=== PATIENT | female | born 1970 | race Caucasian/White ===

== ENCOUNTER → 2018-05-13 | Outpatient (CLI) | payer OTHER ==
--- NOTE | 2018-05-14 08:20 | RAD ---
DATE: 05/13/2018 EXAM: DIGITAL SCREEN BILAT W/CAD HISTORY: Routine screening COMPARISON: 06/19/2015 This study was interpreted with the benefit of Computerized Aided Detection (CAD). Breast Density: SCATTERED The breast parenchyma shows scattered fibroglandular densities. Breast parenchyma level B. FINDINGS: There are stable small nodules in the lateral aspect of the left breast compatible with benign intramammary lymph nodes. No new or enlarging breast densities are seen. No suspicious microcalcifications are evident. IMPRESSION: Stable mammograms without evidence of malignancy. BI-RADS CATEGORY: 2 BENIGN FINDING(S) RECOMMENDED FOLLOW-UP: 12M 12 MONTH FOLLOW-UP PQRS compliance statement: Patient information was entered into a reminder system with a target due date for the next mammogram. Mammography is a sensitive method for finding small breast cancers, but it does not detect them all and is not a substitute for careful clinical examination. A negative mammogram does not negate a clinically suspicious finding and should not result in delay in biopsying a clinically suspicious abnormality. "Our facility is accredited by the [employer] Mammography Program."
== END | disposition home or self-care (01) ==
LOC: MAMMO 14:17
PROVIDERS: ATTEND Family Medicine
DX: Z12.31 Encounter for screening mammogram for malignant neoplasm of breast (principal)
CPT/HCPCS: 77067

== ENCOUNTER 2020-04-22 21:55 | Emergency (ER) | payer SELFPAY ==
[~2020-04-22] VITALS: Ht 154.9 cm; Wt 98.0 kg
--- NOTE | 2020-04-22 22:00 | PHYS DOC ---
Past History Past Medical History: Anxiety, Asthma, GERD, P.U.D Past Medical History 9 term 9 vaginal Past Surgical History: Tonsillectomy Smoking: Cigarettes Alcohol Use: None Drug Use: None General Adult HPI: HPI: ".. Been feeling off the last couple day s.. like maybe my stomach ulcer coming back.. I started my anti acid meds again... and I been taking Maalox to left diarrhea.... But nothing change to make the pain Ladha. Did eat a little bit of [place] food earlier and the pain is gotten much worse in the epigastric and right upper quadrant area... Pain is 10 out of 10 right now.... 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 Patient relates past history of gastric ulcers by EGD evaluation at [place] in the past. Has been on antacids in the past such as Prilosec, omeprazole etc. patient denies any recent tarry stools. Patient denies any trauma. Patient denies any specific ill contacts but multiple children have been sick at the daycare. Patient did not get flu vaccination this season. Has not had Covid vaccination. Patient states her pain in right upper quadrant and epigastric area as 10 out of 10. Patient does continue to smoke tobacco. Patient pt. follows with Dr. Teena Carrillo. And KK at [facility]. There is a family history of gallbladder disease with her mother. Review of Systems: Review of Systems: Constitutional: Denies fever or chills Eyes: Denies change in visual acuity HENT: Denies nasal congestion or sore throat Respiratory: Denies cough or shortness of breath Cardiovascular: Complains of severe epigastric GI: Complains of severe epigastric and right upper quadrant abdominal pain, nausea. Denies, vomiting, bloody stools or diarrhea : Denies dysuria Musculoskeletal: Denies back pain or joint pain Integument: Denies rash Neurologic: Denies headache, focal weakness or sensory changes Endocrine: Denies polyuria or polydipsia Lymphatic: Denies swollen glands Psychiatric: Denies depression or anxiety Family History: Family History: Gallbladder disease with mother Current Medications: Current Meds: See nursing for home meds Allergies: Allergies: Allergies Coded Allergies Type Severity Reaction Last Updated Verified Sulfa (Sulfonamide Antibiotics) Allergy Intermediate 09/27/13 Yes Physical Exam: PE: Constitutional: in acute distress, non-toxic appearance. [] HENT: Normocephalic, atraumatic, bilateral external ears normal, oropharynx moist, no oral exudates, nose normal. Eyes: PERRLA, EOMI, conjunctiva normal, no discharge. [] Neck: Normal range of motion, no tenderness, supple, no stridor. [] Cardiovascular , tachycardia:Heart rate regular rhythm, no murmur [] Lungs & Thorax: Bilateral breath sounds equal apex on auscultation [] does have scattered wheezes Abdomen: Bowel sounds hyperactive,, soft, right upper quadrant and epigastric tenderness, no masses, no pulsatile masses. [] Rebound to the right upper quadrant. Obese.. Does have a mid right lower hernia. It is non-tender and easily reducible. (Patient states she has had this hernia before). Skin: Warm, diaphoretic, no erythema, no rash. [] Back: No tenderness, no CVA tenderness. [] Extremities: No tenderness, no cyanosis, no clubbing, ROM intact, no edema. No psoas sign. No cording appreciated. Neurologic: Alert and oriented X 3, normal motor function, normal sensory function, no focal deficits noted. [] Psychologic: Affect anxious, judgement normal, mood normal. [] EKG: EKG: My interpretation EKG shows a sinus rhythm at 75 bpm. Anterior septal leads low voltage. Somewhat atypical morphology. [] No findings however acute STEMI of contralateral changes. Radiology/Procedures: Radiology/Procedures: [address] [address] IMAGING REPORT Signed PATIENT: DARÍO MONTAÑO ACCOUNT: [id number] : 1970 LOCATION: ER AGE: 49 SEX: F EXAM STATUS: REG ER ORD. PHYSICIAN: ERNESTINE NARANJO MD REASON: PAIN PROCEDURE: ACUTE ABDOMEN SERIES Acute abdominal series with PA chest: Reason for examination: Abdominal pain for 2 days. The heart size is normal. Mediastinum is unremarkable. Lung bernardo are clear. No acute bony abnormalities are present. There is no gross organomegaly. Psoas muscles are symmetric. Bowel gas pattern is nonspecific with some small and large intestinal air present in the small intestine identified however does appear to be mildly dilated and early changes of small bowel obstruction cannot be excluded. No abnormal calcifications are seen. No acute bony abnormalities seen. IMPRESSION: No acute cardiopulmonary disease. Air-filled small intestinal tract identified show some mild dilatation and early changes of small bowel obstruction can't be excluded. Recommend clinical correlation and follow-up. Electronically signed by: Papa Gunn MD (04/23/2020 12:04 AM) [facility] DICTATED AND SIGNED BY: PAPA GUNN MD DATE: 04/23/20 0001 CC: DON CARRILLO; ERNESTINE NARANJO MD ~MTH0 0 [][address] [address] IMAGING REPORT Signed PATIENT: DARÍO MONTAÑO ACCOUNT: [id number] : 1970 LOCATION: ER AGE: 49 SEX: F EXAM STATUS: REG ER ORD. PHYSICIAN: ERNESTINE NARANJO MD REASON: ABD PAIN X 2 DAYS, H/O ULCERS, OMNI 300, 75ml & OMNI 240, 30ml PROCEDURE: CT ABD PELV W/ORAL&IV CONTRAST CT abdomen and pelvis with contrast: Reason for examination: Abdominal pain for 2 days. History of ulcers. Helical images were obtained through the abdomen and pelvis with intravenous administration of 75 cc Omnipaque 300 and 30 cc of oral Omnipaque 240. Reconstruction was performed in sagittal and coronal planes. Exposure: One or more of the following individualized dose reduction techniques were utilized for this examination: 1. Automated exposure control 2. Adjustment of the mA and/or kV according to patient size 3. Use of iterative reconstruction technique. The lung bases are clear. The heart size is normal with no pericardial effusion. No abnormality seen at the liver, gallbladder, spleen, adrenal glands or pancreas. The abdominal aorta and inferior vena cava show no acute abnormalities. No abnormality seen at the appendix. The colon shows no diverticulosis, diverticulitis or colitis. No abnormality seen at the stomach or duodenum. The small intestinal tract however shows some wall thickening and dilatation of small intestine proximally and within a large right lower quadrant abdominal wall hernia. Distally the small intestine is not dilated or obstructed. The kidneys show no renal masses, renal calculi, hydronephrosis or evidence of obstructive uropathy. No abnormality seen at the bladder, uterus or ovaries. No free fluid is seen in the abdomen or pelvis. IMPRESSION: Large lower right abdominal wall hernia containing small intestine with some dilatation and wall thickening of the proximal small intestine suggesting some obstruction with edema. Electronically signed by: Papa Gunn MD (04/23/2020 1:28 AM) [facility] DI[facility] AND SIGNED BY: PAPA GUNN MD DATE: 04/23/20 012 CC: DON CARRILLO; ERNESTINE NARANJO MD ~MTH0 0 Heart Score: C/O Chest Pain: Yes HEART Score for Chest Pain: HEART Score for Chest Pain Response (Comments) Value History Slighlty/Non-Suspicious 0 ECG Nonspecific Repolarizatio 1 Age >45 - < 65 1 Risk Factors 1 or 2 Risk Factors 1 Troponin < Normal Limit 0 Total 3 Risk Factors: Risk Factors: DM, Current or recent (<one month) smoker, HTN, HLP, family history of CAD, obesity. Risk Scores: Score 0 - 3: 2.5% MACE over next 6 weeks - Discharge Home Score 4 - 6: 20.3% MACE over next 6 weeks - Admit for Clinical Observation Score 7 - 10: 72.7% MACE over next 6 weeks - Early Invasive Strategies Course & Med Decision Making: Course & Med Decision Making Pertinent Labs and Imaging studies reviewed. (See chart for details) Patient stay on a clear fluid diet only for 24 to 48 hours. No solids or milk products. Must allow complete bowel rest clear fluids only. Patient to take her omeprazole 40 mg twice a day. Also recommend patient take Carafate 1 g 4 times a day. May take Zofran 8 mg with 4 times a day for active nausea and vomiting. Consider follow-up with primary care and obtain outpatient PIPIDA scan or gallbladder function study. Return if any concerns. Strongly recommend patient stop smoking. Follow up with pending Covid testing. Wear a mask anytime away from home that covers nose and mouth. Impression: 1. Abdomen pain 2. Biliary colic 3. Gastritis 4. Chronic midline abdominal wall hernia 5. Tobacco abuse 6. Viral syndrome [] Dragon Disclaimer: Dragon Disclaimer: This electronic medical record was generated, in whole or in part, using a voice recognition dictation system. Departure Departure: Referrals: DON CARRILLO (PCP) Scripts Oxycodone HCl/Acetaminophen (Percocet 5-325 mg Tablet) 1 Each Tablet 1 EACH PO QIDPRN PRN for grant, #30 TAB Prov: ERNESTINE NARANJO MD 04/23/20 Ondansetron Hcl (ZOFRAN) 4 Mg Tablet 8 MG PO QIDPRN PRN for NAUSEA/VOMITING, #30 TAB Prov: ERNESTINE NARANJO MD 04/23/20 Sucralfate (CARAFATE) 1 Gm Tablet 1 TAB PO QID for gastritis for 30 Days, #120 TAB 0 Refills Prov: ERNESTINE NARANJO MD 04/23/20 Omeprazole/Sodium Bicarbonate (OMEPRAZOLE-BICARB 40-1,100 CAP) 1 Each Capsule 1 EACH PO BID for gastritis for 30 Days, #60 CAP Prov: ERNESTINE NARANJO MD 04/23/20 Dragon Disclaimer This chart was dictated in whole or in part using Voice Recognition software in a busy, high-work load, and often noisy Emergency Department environment. It may contain unintended and wholly unrecognized errors or omissions. ERNESTINE NARANJO MD Apr 22, 2020 22:00
[2020-04-22] MEDS ORDERED: IV RINGERS SOLUTION,LACTATED 1,000 ML IV SCH (22:30)
[2020-04-22] MEDS ORDERED: ONDANSETRON PF 4 MG/2 ML VIAL. IVP ONE (22:30)
[2020-04-22] MEDS ORDERED: MORPHINE SULFATE 10 MG/ML SYRINGE. SQ ONE (22:30)
[2020-04-22] MEDS ORDERED: SUCRALFATE 1 GM TABLET. PO ONE (22:30)
[2020-04-22] MEDS ORDERED: FAMOTIDINE 20 MG/2 ML VIAL IVP ONE (22:30)
[2020-04-22 22:55] LABS: CREATININE 0.9 mg/dL (0.6-1.0); GFR 66.8
[2020-04-22 23:07] LABS: ALBUMIN 3.4 g/dL (3.4-5.0); DIRECT BILIRUBIN 0.1 mg/dL (0.0-0.2); TOTAL BILIRUBIN 0.2 mg/dL (0.2-1.0); TOTAL PROTEIN 7.1 g/dL (6.4-8.2)
[2020-04-22 23:16] LABS: BASO # 0.1 x10^3/uL (0.0-0.2); BASO % 1 % (0-3); EOS # 0.3 x10^3/uL (0.0-0.7); EOS % 2 % (0-3); HEMATOCRIT 43.6 % (36.0-47.0); HEMOGLOBIN 14.3 g/dL (12.0-15.5); LYMPH # 3.2 x10^3/uL (1.0-4.8); LYMPH % 26 % (24-48); MEAN CORPUSCULAR HEMOGLOBIN 29 pg (25-35); MEAN CORPUSCULAR HGB CONC 33 g/dL (31-37); MEAN CORPUSCULAR VOLUME 88 fL (79-100); MONO # 0.8 x10^3/uL (0.0-1.1); MONO % 7 % (0-9); NEUT # 7.8 x10^3uL (1.8-7.7); NEUT % 64 % (31-73); PLATELET COUNT 274 x10^3/uL (140-400); RED BLOOD COUNT 4.96 x10^6/uL (3.50-5.40); RED CELL DISTRIBUTION WIDTH 14.3 % (11.5-14.5); WHITE BLOOD COUNT 12.2 x10^3/uL (4.0-11.0)
[2020-04-22] MEDS ORDERED: CONTRAST GIVEN. MC PRN (23:30)
[2020-04-22] MEDS ORDERED: IOHEXOL 300 MG/ML 75 ML VIAL. IV ONE (23:30)
[2020-04-22] MEDS ORDERED: IOHEXOL 240 MG/ML 50ML VIAL. PO ONE (23:30)
--- NOTE | 2020-04-23 00:06 | RAD ---
Acute abdominal series with PA chest: Reason for examination: Abdominal pain for 2 days. The heart size is normal. Mediastinum is unremarkable. Lung bernardo are clear. No acute bony abnormali ties are present. There is no gross organomegaly. Psoas muscles are symmetric. Bowel gas pattern is nonspecific with so me small and large intestinal air present in the small intestine identified however does appear to be mildly dilated and early changes of small bowel obstruction cannot be excluded. No abnormal calcific ations are seen. No acute bony abnormalities seen. IMPRESSION: No acute cardiopulmonary disease. Air-filled small intestinal tract identified show some mild dilatation and early changes of small bow el obstruction can't be excluded. Recommend clinical correlation and follow-up. Electronically signed by: Bela Leung MD (04/23/2020 12:04 AM) [facility]
--- NOTE | 2020-04-23 00:24 | EKG ---
[facility] ED [facility] [address] [place] [address] Test Date: 2020-04-22 Test Time: 23:08:56 Pat Name: DARÍO MONTAÑO Department: Room: Gender: F Site Leader: : 1970 Requested By: ERNESTINE NARANJO Order Number: [id number] Reading MD: Measurements Intervals [place] Rate: 75 P: 46 NM: 154 QRS: 3 QRSD: 80 T: 15 QT: 362 QTc: 407 Interpretive Statements SINUS RHYTHM LOW LIMB LEAD VOLTAGE T ABNORMALITY IN ANTEROSEPTAL LEADS ABNORMAL ECG RI6.02 No previous ECG available for comparison
[2020-04-23] MEDS ORDERED: ONDANSETRON PF 4 MG/2 ML VIAL. IVP ONE (00:30)
--- NOTE | 2020-04-23 01:30 | RAD ---
CT abdomen and pelvis with contrast: Reason for examination: Abdominal pain for 2 days. History of ulcers. Helical images were obtained through the abdomen and pelvis with intravenous administration of 75 cc Omnipaque 300 and 30 cc of oral Omnipaque 240. Reconstruction was performed in sagittal and coronal p lanes. Exposure: One or more of the following individualized dose reduction techniques were utilized for thi s examination: 1. Automated exposure control 2. Adjustment of the mA and/or kV according to patient size 3. Use of iterative reconstruction technique. The lung bases are clear. The heart size is normal with no pericardial effusion. No abnormality seen at the liver, gallbladder, spleen, adrenal glands or pancreas. The abdominal aort a and inferior vena cava show no acute abnormalities. No abnormality seen at the appendix. The colon shows no diverticulosis, diverticulitis or colitis. No abnormality seen at the stomach or duodenum. T he small intestinal tract however shows some wall thickening and dilatation of small intestine proxim ally and within a large right lower quadrant abdominal wall hernia. Distally the small intestine is n ot dilated or obstructed. The kidneys show no renal masses, renal calculi, hydronephrosis or evidence of obstructive uropathy. No abnormality seen at the bladder, uterus or ovaries. No free fluid is seen in the abdomen or pelvis . IMPRESSION: Large lower right abdominal wall hernia containing small intestine with some dilatation and wall thic kening of the proximal small intestine suggesting some obstruction with edema. Electronically signed by: Bela Leung MD (04/23/2020 1:28 AM) [facility]
[2020-04-23 01:57] LABS: BILIRUBIN,URINE NEG (NEG); CLARITY,URINE CLEAR; COLOR,URINE YELLOW; GLUCOSE,URINE 100 mg/dL (NEG)
[2020-04-23 01:58] LABS: BACTERIA,URINE 0 /HPF (0-FEW); NITRITE,URINE NEG (NEG); SQUAMOUS EPITHELIAL CELL,UR FEW /LPF; UROBILINOGEN,URINE 0.2 mg/dL (0.2 mg/dL); WBC,URINE OCC /HPF (0-4)
[2020-04-23] MEDS ORDERED: ONDA4TAB7 PO (01:58)
[2020-04-23] MEDS ORDERED: OXYC-325 PO (01:58)
[2020-04-23] MEDS ORDERED: SUCR1TAB35 PO (01:58)
[2020-04-23] MEDS ORDERED: OMEP1CAP25 PO (01:58)
[2020-04-23 02:35] VITALS: BP 119/55
[2020-04-23 07:14] LABS: BARBITURATES NEG (NEG); BENZODIAZEPINES NEG (NEG); CANNABINOIDS NEG (NEG); COCAINE NEG (NEG); METHADONE NEG (NEG); OPIATES POS (NEG); PHENCYCLIDINE NEG (NEG)
[2020-04-23 07:26] LABS: AMPHETAMINE/METHAMPHETAMINE NEG (NEG)
== END 2020-04-23 02:35 | disposition home or self-care (01) ==
LOC: ER 21:55
DX: K29.70 Gastritis, unspecified, without bleeding (principal); Z20.822 Contact with and (suspected) exposure to COVID-19; G89.29 Other chronic pain; K43.9 Ventral hernia without obstruction or gangrene; K80.50 Calculus of bile duct without cholangitis or cholecystitis without obstruction; B34.9 Viral infection, unspecified; F17.210 Nicotine dependence, cigarettes, uncomplicated; J45.909 Unspecified asthma, uncomplicated; K21.9 Gastro-esophageal reflux disease without esophagitis; F41.9 Anxiety disorder, unspecified; Z88.2 Allergy status to sulfonamides
CPT/HCPCS: 36415; 74022; 74177; 80048; 80076; 80307; 81001; 82150; 83690; 84484; 85025; 86705; 86709; 86803; 87340; 93005; 96361; 96372; 96374; 96375; 96376; 99285; J2270; J2405; J3490; J7120; Q9966; Q9967; U0003; C9803

== ENCOUNTER → 2020-06-05 | Outpatient (CLI) | payer SELFPAY ==
[~2020-06-05] MED LIST: OMEP1CAP25 PO; ONDA4TAB7 PO; OXYC-325 PO; SUCR1TAB35 PO
== END ==
LOC: RAD 15:58
PROVIDERS: ATTEND Nurse Practitioner Family
DX: J06.9 Acute upper respiratory infection, unspecified (principal)
CPT/HCPCS: 71046

== ENCOUNTER → 2020-08-16 | Outpatient (CLI) | payer OTHER ==
--- NOTE | 2020-08-16 16:26 | RAD ---
MG 2D BILAT SCREENING 08/16/2020 1:52 PM INDICATION: Asymptomatic screening mammogram. COMPARISON: 05/13/2018, 06/19/2015 TECHNIQUE: 2D CC and MLO projections were obtained of each breast. FINDINGS: Breast density: Category B: There are scattered areas of fibroglandular density. Right breast: There is a focal asymmetry in the retroareolar right breast mid to anterior depth. Furt her evaluation spot compression CC and MLO views is recommended as well as possible ultrasound. Left breast: There are no suspicious microcalcifications, masses or areas of architectural distortion . Left mammogram is compared to prior examinations appears unchanged. IMPRESSION: Incomplete right mammogram. Additional imaging is recommended. Negative left mammogram. BI-RADS category: 0; Incomplete Recommendations: Recommend additional imaging for which the patient will need to be called back. Electronically signed by: Sylvie Wylie MD (08/16/2020 4:24 PM) [id number]
== END ==
LOC: MAMMO 13:22
PROVIDERS: ATTEND Nurse Practitioner Family
DX: Z12.31 Encounter for screening mammogram for malignant neoplasm of breast (principal)
CPT/HCPCS: 77067

== ENCOUNTER → 2020-08-28 | Outpatient (CLI) | payer OTHER ==
--- NOTE | 2020-08-28 17:39 | RAD ---
DATE: 08/28/2020 EXAM: DIGITAL DIAGNOSTIC RT HISTORY: Recall from screening mammogram for focal asymmetry in the right breast COMPARISON: 08/16/2020, 05/13/2018, 06/19/2015 This study was interpreted with the benefit of Computerized Aided Detection (CAD). Breast Density: SCATTERED The breast parenchyma shows scattered fibroglandular densities. Breast parenchyma level B. FINDINGS: The focal asymmetry in the right breast resolves with spot compression, consistent with superimposed fibroglandular tissue. IMPRESSION: No evidence of malignancy. BI-RADS CATEGORY: 1 NEGATIVE RECOMMENDED FOLLOW-UP: 12M 12 MONTH FOLLOW-UP PQRS compliance statement: Patient information was entered into a reminder system with a target due date for the next mammogram. Mammography is a sensitive method for finding small breast cancers, but it does not detect them all and is not a substitute for careful clinical examination. A negative mammogram does not negate a clinically suspicious finding and should not result in delay in biopsying a clinically suspicious abnormality. "Our facility is accredited by the [employer] Mammography Program."
== END ==
LOC: MAMMO 14:51
PROVIDERS: ATTEND Family Medicine
DX: R92.8 Other abnormal and inconclusive findings on diagnostic imaging of breast (principal)
CPT/HCPCS: 77065

== ENCOUNTER 2021-03-27 16:59 | Emergency (ER) | payer SELFPAY ==
[~2021-03-27] VITALS: Ht 154.9 cm; Wt 86.0 kg
[2021-03-27] MEDS: ASPIRIN CHEWABLE 81 MG TABLET. PO ONE (17:30)
--- NOTE | 2021-03-27 17:48 | EKG ---
[address] [address] Test Date: 2021-03-27 Test Time: 17:30:19 Pat Name: DARÍO MONTAÑO Department: Room: Gender: F Hardwood Floor Sander: LAURIE : 1970 Requested By: DREA HARPER Order Number: [id number] Reading MD: Marlon Willett Measurements Intervals [place] Rate: 67 P: 51 ID: [id number] QRS: 8 QRSD: 80 T: 21 QT: 376 QTc: 400 Interpretive Statements SINUS RHYTHM LOW LIMB LEAD VOLTAGE Electronically Signed On 03-27-2021 19:47:07 BUNDLE HELPER by Marlon Willett
--- NOTE | 2021-03-27 17:48 | PHYS DOC ---
Past History Past Medical History: Anxiety, Asthma, GERD, P.U.D (DREA HARPER APRN) Past Surgical History: Tonsillectomy, Tubal ligation (DREA HARPER APRN) Smoking: Cigarettes Alcohol Use: None Drug Use: None (DREA HARPER APRN) General Adult EDM: Chief Complaint: CHEST PAIN HPI: HPI: Patient is a 50-year-old female who presents today with 2 episodes of chest pain. 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 She said she had another episode at rest today at around 1630 where she had chest pain at rest, she also had sweats and nausea with this pain as well, and since that time she had her sister bring her to the emergency department for further evaluation. Patient states her past medical history includes asthma and reflux disease, she also states that she smokes on a daily basis. Patient states that she has not been sick recently she said she had Covid back in August 2020. (DREA HARPER APRN) Review of Systems: Review of Systems: Constitutional: Denies fever or chills Eyes: Denies change in visual acuity HENT: Denies nasal congestion or sore throat Respiratory: Denies cough or shortness of breath Cardiovascular: Chest pain denies edema GI: Nausea denies abdominal pain, vomiting, bloody stools or diarrhea : Denies dysuria Musculoskeletal: Denies back pain or joint pain Integument: Denies rash Neurologic: Denies headache, focal weakness or sensory changes Endocrine: Denies polyuria or polydipsia Lymphatic: Denies swollen glands Psychiatric: Denies depression or anxiety (DREA HARPER APRN) Current Medications: Current Meds: Current Medications Medications (Trade) Dose Ordered Sig/Sindhu Start Time Stop Time Status Last Admin Dose Admin Aspirin (Aspirin Chewable) 324 mg 1X ONCE 03/27/21 17:30 03/27/21 17:35 DC (DREA HARPER APRN) Allergies: Allergies: Allergies Coded Allergies Type Severity Reaction Last Updated Verified Sulfa (Sulfonamide Antibiotics) Allergy Intermediate 09/27/13 Yes (DREA HARPER APRN) Physical Exam: PE: Constitutional: Well developed, well nourished, no acute distress, non-toxic appearance. [] HENT: Normocephalic, atraumatic, bilateral external ears normal, oropharynx moist, no oral exudates, nose normal. [] Eyes: PERRLA, EOMI, conjunctiva normal, no discharge. [] Neck: Normal range of motion, no tenderness, supple, no stridor. [] Cardiovascular:Heart rate regular rhythm, no murmur [] Lungs & Thorax: Bilateral breath sounds clear to auscultation [] Abdomen: Bowel sounds normal, soft, no tenderness, no masses, no pulsatile masses. [] Skin: Warm, dry, no erythema, no rash. [] Back: No tenderness, no CVA tenderness. [] Extremities: No tenderness, no cyanosis, no clubbing, ROM intact, no edema. [] Neurologic: Alert and oriented X 3, normal motor function, normal sensory function, no focal deficits noted. [] Psychologic: Affect normal, judgement normal, mood normal. [] (DREA HARPER INFORMATICS APPLICATION ANALYST) Current Patient Data: Labs: Laboratory Tests Test 03/27/21 18:05 03/27/21 18:52 03/27/21 19:30 Sodium Level 140 mmol/L Potassium Level 4.2 mmol/L Chloride Level 107 mmol/L Carbon Dioxide Level 23 mmol/L Anion Gap 10 Blood Urea Nitrogen 18 mg/dL Creatinine 0.8 mg/dL Estimated GFR (Cockcroft-Gault) 76.2 BUN/Creatinine Ratio 23 Glucose Level 83 mg/dL Calcium Level 9.3 mg/dL Total Bilirubin 0.3 mg/dL Aspartate Amino Transf (AST/SGOT) 12 U/L Alanine Aminotransferase (ALT/SGPT) 22 U/L Alkaline Phosphatase 76 U/L Troponin I High Sensitivity < 4 ng/L Total Protein 6.5 g/dL Albumin 3.5 g/dL Albumin/Globulin Ratio 1.2 Prothrombin Time 10.0 SEC Prothromb Time International Ratio 1.0 Activated Partial Thromboplast Time 24 SEC D-Dimer (Ila) 0.74 mg/L White Blood Count 11.1 x10^3/uL Red Blood Count 4.21 x10^6/uL Hemoglobin 11.7 g/dL Hematocrit 36.4 % Mean Corpuscular Volume 86 fL Mean Corpuscular Hemoglobin 28 pg Mean Corpuscular Hemoglobin Concent 32 g/dL Red Cell Distribution Width 15.7 % Platelet Count 249 x10^3/uL Neutrophils (%) (Auto) 59 % Lymphocytes (%) (Auto) 30 % Monocytes (%) (Auto) 7 % Eosinophils (%) (Auto) 3 % Basophils (%) (Auto) 1 % Neutrophils # (Auto) 6.6 x10^3uL Lymphocytes # (Auto) 3.4 x10^3/uL Monocytes # (Auto) 0.8 x10^3/uL Eosinophils # (Auto) 0.3 x10^3/uL Basophils # (Auto) 0.1 x10^3/uL Current Medications Medications (Trade) Dose Ordered Sig/Sindhu Route PRN Reason Start Time Stop Time Status Last Admin Dose Admin Aspirin (Aspirin Chewable) 324 mg 1X ONCE PO 03/27/21 17:30 03/27/21 17:35 DC 03/27/21 17:30 Vital Signs: Vital Signs Date Time Temp Pulse Resp B/P (MAP) Pulse Ox O2 Delivery O2 Flow Rate FiO2 03/27/21 17:23 98.2 68 18 98 (DREA HARPER INFORMATICS APPLICATION ANALYST) EKG: EKG: EKG done at [address] Mathew at 1735 shows sinus rhythm no ectopy at a rate of 67 with a OK interval of 144 ms with a QTC of 400 ms no STEMI [] (DREA HARPER INFORMATICS APPLICATION ANALYST) Radiology/Procedures: Radiology/Procedures: REASON: chest pain left side PROCEDURE: PORTABLE CHEST 1V EXAM: XR CHEST 1V 03/27/2021 5:34 PM CLINICAL INDICATION: Chest pain, left side COMPARISON: Chest radiograph 06/05/2020 TECHNIQUE: AP upright view of the chest FINDINGS: The heart and mediastinum are normal. Lungs are well-expanded and clear. No consolidation, pleural effusion, or pneumothorax. Pulmonary vascularity is normal. Mild thoracic scoliosis. IMPRESSION: No acute abnormality. Electronically signed by: Meredith Shell MD (03/27/2021 9:00 PM) [id number][] (DREA HARPER INFORMATICS APPLICATION ANALYST) Heart Score: C/O Chest Pain: Yes HEART Score for Chest Pain: HEART Score for Chest Pain Response (Comments) Value History Slighlty/Non-Suspicious 0 ECG Normal 0 Age >45 - < 65 1 Risk Factors 1 or 2 Risk Factors 1 Troponin < Normal Limit 0 Total 2 Risk Factors: Risk Factors: DM, Current or recent (<one month) smoker, HTN, HLP, family history of CAD, obesity. Risk Scores: Score 0 - 3: 2.5% MACE over next 6 weeks - Discharge Home Score 4 - 6: 20.3% MACE over next 6 weeks - Admit for Clinical Observation Score 7 - 10: 72.7% MACE over next 6 weeks - Early Invasive Strategies (DREA HARPER APRN) Course & Med Decision Making: Course & Med Decision Making Pertinent Labs and Imaging studies reviewed. (See chart for details) Troponin is negative patient has increased pain with movement and with palpation to the chest wall, will send her home with chest wall pain with possible costochondritis to take ibuprofen and/or Tylenol for pain. If patient continues to have pain I instructed her to follow-up with her clinic [facility] for further management of this. D-dimer was noted to be elevated but her PERC was 0. Patient verbalizes understanding of this and is agreeable to the plan of car e. (DREA HARPER APRN) Course & Med Decision Making Did not see or evaluate patient. Did not discuss patient with CHAIRLIFT OPERATOR. Generally agree with CHAIRLIFT OPERATOR's disposition per note. (CHANDLER MCNALLY MD) Dragon Disclaimer: Dragon Disclaimer: This electronic medical record was generated, in whole or in part, using a voice recognition dictation system. (DREA HARPER APRN) Departure Departure: Impression: Primary Impression: Costochondritis Additional Impression: Chest wall pain Disposition: HOME / SELF CARE / HOMELESS Condition: STABLE Referrals: DON CARRILLO (PCP) Patient Instructions: Chest Wall Pain, Costochondritis, Smoking Cessation Additional Instructions: Tylenol and/or ibuprofen as needed for pain Stop smoking Follow-up with your primary care physician in 3 to 5 days if your pain continues Return to the emergency department if your pain worsens, you have chest pain that is constant, you have increased work of breathing, your lips or face become blue. PERC Rule for PE PERC Rule for PE Response (Comments) Value Age > 50: No 0 HR > 100: No 0 Sa02 on room air <95%: No 0 Unilateral leg swelling: No 0 Hemoptysis: No 0 Recent surgery or trauma: No 0 Prior PE or DVT: No 0 Hormone use: No 0 Total 0 DREA HARPER APRN Mar 27, 2021 17:48 CHANDLER MCNALLY MD Mar 28, 2021 06:08
[2021-03-27 18:34] LABS: CALCIUM 9.3 mg/dL (8.5-10.1); CREATININE 0.8 mg/dL (0.6-1.0); GFR 76.2; POTASSIUM 4.2 mmol/L (3.5-5.1)
[2021-03-27 18:40] LABS: ALBUMIN 3.5 g/dL (3.4-5.0); ALBUMIN/GLOBULIN RATIO 1.2 (1.0-1.7); TOTAL BILIRUBIN 0.3 mg/dL (0.2-1.0); TOTAL PROTEIN 6.5 g/dL (6.4-8.2)
[2021-03-27 19:47] LABS: BASO # 0.1 x10^3/uL (0.0-0.2); BASO % 1 % (0-3); EOS # 0.3 x10^3/uL (0.0-0.7); EOS % 3 % (0-3); HEMATOCRIT 36.4 % (36.0-47.0); HEMOGLOBIN 11.7 g/dL (12.0-15.5); LYMPH # 3.4 x10^3/uL (1.0-4.8); LYMPH % 30 % (24-48); MEAN CORPUSCULAR HEMOGLOBIN 28 pg (25-35); MEAN CORPUSCULAR HGB CONC 32 g/dL (31-37); MEAN CORPUSCULAR VOLUME 86 fL (79-100); MONO # 0.8 x10^3/uL (0.0-1.1); MONO % 7 % (0-9); NEUT # 6.6 x10^3uL (1.8-7.7); NEUT % 59 % (31-73); PLATELET COUNT 249 x10^3/uL (140-400); RED BLOOD COUNT 4.21 x10^6/uL (3.50-5.40); RED CELL DISTRIBUTION WIDTH 15.7 % (11.5-14.5); WHITE BLOOD COUNT 11.1 x10^3/uL (4.0-11.0)
--- NOTE | 2021-03-27 21:02 | RAD ---
EXAM: XR CHEST 1V 03/27/2021 5:34 PM CLINICAL INDICATION: Chest pain, left side COMPARISON: Chest radiograph 06/05/2020 TECHNIQUE: AP upright view of the chest FINDINGS: The heart and mediastinum are normal. Lungs are well-expanded and clear. No consolidatio n, pleural effusion, or pneumothorax. Pulmonary vascularity is normal. Mild thoracic scoliosis. IMPRESSION: No acute abnormality. Electronically signed by: Meredith Shell MD (03/27/2021 9:00 PM) [id number]
== END 2021-03-27 19:45 | disposition home or self-care (01) ==
LOC: ER 16:59
DX: M94.0 Chondrocostal junction syndrome [Tietze] (principal); J45.909 Unspecified asthma, uncomplicated; K21.9 Gastro-esophageal reflux disease without esophagitis; F17.210 Nicotine dependence, cigarettes, uncomplicated; F41.9 Anxiety disorder, unspecified; Z88.2 Allergy status to sulfonamides
CPT/HCPCS: 36415; 71045; 80053; 84484; 85025; 85379; 85610; 85730; 93005; 99285

== ENCOUNTER 2021-05-12 01:19 | Emergency (ER) | payer SELFPAY ==
[~2021-05-12] VITALS: Ht 154.9 cm; Wt 95.9 kg
--- NOTE | 2021-05-12 01:24 | PHYS DOC ---
Past History Past Medical History: Anxiety, Asthma, GERD, P.U.D Past Surgical History: Tonsillectomy, Tubal ligation Smoking: Cigarettes Alcohol Use: None Drug Use: None General Adult HPI: HPI: ".. I think my asthma is messing up...." Patient is a 51 year old female who presents with above hx and complaints dyspnea, wheezing, cough. Patient feels primarily she is having a asthma exacerbations. Currently declines a cardiac work-up Or PE work-up patient has quit smoking for the last week and a half. Patient did not get flu vaccination this year, COVID vaccination this year or no history of Pneumovax. Patient does work in a daycare. No recent travel. No severe ill contacts other than work. Patient does not know her best peak flow. Patient does do a inhaled steroid. Twice a day. Patient has not been on oral steroids for some time. Patient is currently on antibiotics for urinary tract infection. Patient states her trigger for asthma exacerbations are cats, dogs, dust, weather changes. No history of intubations for her asthma exacerbations. Review of Systems: Review of Systems: Constitutional: Denies fever or chills Eyes: Denies change in visual acuity HENT: Denies nasal congestion or sore throat Respiratory: Complains of a nonproductive cough, dyspnea and wheezing Cardiovascular: Denies chest pain or edema GI: Denies abdominal pain, nausea, vomiting, bloody stools or diarrhea : Denies dysuria Musculoskeletal: Denies back pain or joint pain Integument: Denies rash Neurologic: Denies headache, focal weakness or sensory changes Endocrine: Denies polyuria or polydipsia Lymphatic: Denies swollen glands Psychiatric: Denies depression or anxiety Family History: Family History: Noncontributory to presentation Current Medications: Current Meds: See nursing for home meds Allergies: Allergies: Allergies Coded Allergies Type Severity Reaction Last Updated Verified Sulfa (Sulfonamide Antibiotics) Allergy Intermediate 09/27/13 Yes Physical Exam: PE: Constitutional: Mild distress, non-toxic appearance. [] HENT: Normocephalic, atraumatic, bilateral external ears normal, oropharynx moist, no oral exudates, nose: Turbinates clear rhinorrhea Eyes: PERRLA, EOMI, conjunctiva normal, no discharge. [] Neck: Normal range of motion, no tenderness, supple, no stridor. [] Cardiovascular:Heart rate regular rhythm, no murmur [] Lungs & Thorax: Bilateral breath sounds equal apex scattered wheezes auscultation [] Abdomen: Bowel sounds normal, soft, no tenderness, no masses, no pulsatile masses. Obese. Old surgery scars. Skin: Warm, dry, no erythema, no rash. [] Back: No tenderness, no CVA tenderness. [] Extremities: No tenderness, no cyanosis, no clubbing, ROM intact, no edema. No cording. Neurologic: Alert and oriented X 3, normal motor function, normal sensory func tion, no focal deficits noted. [] Psychologic: Affect normal, judgement normal, mood normal. [] EKG: EKG: My interpretation EKG shows a sinus rhythm at 68 bpm. Low voltage in all leads. No findings of acute STEMI of contralateral changes. Time of EKG is 243 hours [] Radiology/Procedures: Radiology/Procedures: [] Heart Score: C/O Chest Pain: N/A Risk Factors: Risk Factors: DM, Current or recent (<one month) smoker, HTN, HLP, family history of CAD, obesity. Risk Scores: Score 0 - 3: 2.5% MACE over next 6 weeks - Discharge Home Score 4 - 6: 20.3% MACE over next 6 weeks - Admit for Clinical Observation Score 7 - 10: 72.7% MACE over next 6 weeks - Early Invasive Strategies Course & Med Decision Making: Course & Med Decision Making Pertinent Labs and Imaging studies reviewed. (See chart for details) Patient take prednisone 60 mg a day for next 5 days. Patient use MDI 2 puffs 4 times a day. Patient follow-up primary care. Return if any concerns. Continue efforts to stop the use of tobacco. Impression: 1. Asthma Exacerbation 2. Viral syndrome [] Dragon Disclaimer: Dragon Disclaimer: This electronic medical record was generated, in whole or in part, using a voice recognition dictation system. Departure Departure: Referrals: SARAH TEJADA APRN (PCP) Scripts Prednisone (PREDNISONE) 50 Mg Tablet 60 MG PO DAILY for asthma exacerbation for 5 Days, #6 TAB Prov: ERNESTINE NARANJO MD 05/12/21 Brittanie Disclaimer This chart was dictated in whole or in part using Voice Recognition software in a busy, high-work load, and often noisy Emergency Department environment. It may contain unintended and wholly unrecognized errors or omissions. ERNESTINE NARANJO MD May 12, 2021 01:23
[2021-05-12] MEDS ORDERED: IV RINGERS SOLUTION,LACTATED 1,000 ML IV SCH (01:30)
[2021-05-12] MEDS ORDERED: ALBUTEROL SULFATE 8GM INHALER. INH ONE (01:30)
[2021-05-12] MEDS ORDERED: methylPREDNISolone SOD SUCC PF 125 MG/2 ML VIAL. IV ONE (02:00)
[2021-05-12] MEDS ORDERED: predniSONE 20 MG TABLET PO ONE (02:30)
[2021-05-12] MEDS ORDERED: IPRATRPIUM/ALBUTEROL 0.5/2.5MG 3 ML NEBU. NEB ONE (02:30)
--- NOTE | 2021-05-12 02:32 | RAD ---
EXAM: XR CHEST 1V 05/12/2021 1:40 AM CLINICAL INDICATION: Dyspnea COMPARISON: Chest radiograph 03/27/2021 TECHNIQUE: AP view of the chest FINDINGS: The heart and mediastinum are normal. Lungs are well-expanded and clear. No consolidatio n, pleural effusion, or pneumothorax. Pulmonary vascularity is normal. No acute osseous abnormality. IMPRESSION: No acute cardiopulmonary abnormality. Electronically signed by: Meredith Shell MD (05/12/2021 2:29 AM) [facility]
[2021-05-12] MEDS ORDERED: PRED50TA PO (02:33)
[2021-05-12 03:15] VITALS: BP 115/65
--- NOTE | 2021-05-12 18:49 | EKG ---
[address] [address] Test Date: 2021-05-12 Test Time: 02:43:51 Pat Name: DARÍO MONTAÑO Department: Room: Gender: F Product Marketing Specialist: KEATON : 1970 Requested By: ERNESTINE NARANJO Order Number: [id number] Reading MD: Marlon Willett Measurements Intervals [place] Rate: 68 P: 60 UT: 154 QRS: 13 QRSD: 80 T: 20 QT: 392 QTc: 417 Interpretive Statements SINUS RHYTHM LOW LIMB LEAD VOLTAGE Electronically Signed On 05-13-2021 9:12:03 CDT by Marlon Willett
== END 2021-05-12 03:15 | disposition home or self-care (01) ==
LOC: ER 01:19
DX: J45.901 Unspecified asthma with (acute) exacerbation (principal); B34.9 Viral infection, unspecified; K21.9 Gastro-esophageal reflux disease without esophagitis; F41.9 Anxiety disorder, unspecified; F17.210 Nicotine dependence, cigarettes, uncomplicated; Z87.11 Personal history of peptic ulcer disease; Z88.2 Allergy status to sulfonamides
CPT/HCPCS: 71045; 93005; 94640; 99283; J7512; 94664